=== PATIENT | male | born 1945 | race Caucasian/White ===

== ENCOUNTER 2022-09-14 10:17 | Outpatient (REF) | payer OTHER, SELFPAY ==
[2022-09-14 10:51] VITALS: BMI 29.2
[2022-09-14 10:52] VITALS: BP 157/81; PULSE 73; RESP 16; TEMP 36.6; O2SAT 96
== END 2022-09-14 10:18 | disposition home or self-care (01) ==
LOC: HO.MS 10:17
PROVIDERS: PCP Internal Medicine; Visit Provider Ophthalmology
PROC: (CPT 66821; principal; 2022-09-14 12:00)
DX: H26.491 Other secondary cataract, right eye (principal); Z96.1 Presence of intraocular lens; I10 Essential (primary) hypertension; E11.9 Type 2 diabetes mellitus without complications; Z96.653 Presence of artificial knee joint, bilateral; Z87.891 Personal history of nicotine dependence; Z79.4 Long term (current) use of insulin; Z79.899 Other long term (current) drug therapy; Z79.82 Long term (current) use of aspirin
CPT/HCPCS: 66821